=== PATIENT | male | born 1950 | race Caucasian/White ===

== ENCOUNTER 2017-08-20 13:55 | Inpatient (IN) | payer MEDICARE ==
[2017-08-20] MEDS ORDERED: LORazepam 1 MG TAB PO (14:21)
[2017-08-20] MEDS ORDERED: AMANTADINE 100 MG CAP PO (14:30)
[2017-08-20] MEDS ORDERED: traZODone 50 MG TAB PO (14:30)
[2017-08-20] MEDS ORDERED: PARoxetine 12.5 MG **CR** TAB PO (14:45)
[2017-08-20 14:56] LABS: HEMATOCRIT 35.7 % (42.0-52.0); HEMOGLOBIN 12.1 g/dl (13.5-17.5); MEAN CORPUSCULAR HEMOGLOBIN 30.1 pg (27.0-33.0); MEAN CORPUSCULAR HGB CONC 33.9 g/dl (32.0-36.5); MEAN CORPUSCULAR VOLUME 88.8 fl (80.0-96.0); PLATELET COUNT, AUTOMATED 272 10^3/uL (150-450); RED BLOOD COUNT 4.02 10^6/uL (4.30-6.10); RED CELL DISTRIBUTION WIDTH 12.4 % (11.5-14.5); WHITE BLOOD COUNT 8.6 10^3/uL (4.0-10.0)
[2017-08-20] MEDS: HALOPERIDOL 5 MG/ML VIAL (J1630) IM (15:02)
[2017-08-20] MEDS: LORazepam 2 MG/ML VIAL (J2060) IM (15:12)
[2017-08-20] MEDS: diphenhydrAMINE INJ 50MG/ML VIAL (J1200) IM (15:12)
[2017-08-20 15:29] LABS: ACETAMINOPHEN LEVEL < 2.0 UG/ML (10.0-30.0); ALBUMIN 3.2 GM/DL (3.2-5.2); ALBUMIN/GLOBULIN RATIO 1.07 (1.00-1.93); ALKALINE PHOSPHATASE 70 U/L (45-117); ALT/SGPT 35 U/L (12-78); ANION GAP 8 MEQ/L (8-16); AST/SGOT 35 U/L (7-37); BILIRUBIN,DIRECT 0.2 MG/DL (0.0-0.2); BILIRUBIN,TOTAL 0.3 MG/DL (0.2-1.0); BLOOD UREA NITROGEN 56 MG/DL (7-18); CALCIUM LEVEL 8.3 MG/DL (8.8-10.2); CARBON DIOXIDE LEVEL 29 MEQ/L (21-32); CHLORIDE LEVEL 103 MEQ/L (98-107); CREATININE FOR GFR 2.77 MG/DL (0.70-1.30); GLOMERULAR FILTRATION RATE 24.4 (>49); GLUCOSE, FASTING 154 MG/DL (70-100); POTASSIUM SERUM 4.2 MEQ/L (3.5-5.1); SALICYLATE LEVEL < 1.7 MG/DL (5.0-30.0); SODIUM LEVEL 140 MEQ/L (136-145); TOTAL PROTEIN 6.2 GM/DL (6.4-8.2)
[2017-08-20 15:36] LABS: ETHYL ALCOHOL (ETHANOL) < 0.003 % (0.000-0.010)
[2017-08-20] MEDS ORDERED: diphenhydrAMINE 25 MG CAP PO (20:15)
[2017-08-20] MEDS ORDERED: LORazepam 2 MG/ML VIAL (J2060) IV (20:15)
[2017-08-20] MEDS ORDERED: CYCLOBENZAPRINE 10 MG TAB PO (20:15)
[2017-08-20] MEDS: HEPARIN SOD (PORCINE) 5000 UNITS/ML VIAL SC (21:00)
[2017-08-20 21:25] LABS: ESTIMATED AVERAGE GLUCOSE 126 MG/DL (60-110)
[2017-08-20] MEDS: NS 500 ML IV (22:32)
[2017-08-20] MEDS: traZODone 50 MG TAB PO (22:40)
[2017-08-20] MEDS: OLANZapine 5 MG TAB PO ×2 (22:40)
[2017-08-20] MEDS: SENOKOT S TAB PO (22:40)
[2017-08-20 22:56] LABS: CK-MB VALUE MASS 18.8 NG/ML (<3.6); CPK CREATINE PHOSPHOKINASE 806 U/L (39-308); MB/CK RELATIVE INDEX 2.33 (< OR =4); TROPONIN I 0.03 NG/ML (< 0.10)
[2017-08-21 03:22] LABS: CK-MB VALUE MASS 16.8 NG/ML (<3.6); CPK CREATINE PHOSPHOKINASE 716 U/L (39-308); MB/CK RELATIVE INDEX 2.34 (< OR =4); TROPONIN I 0.03 NG/ML (< 0.10)
[2017-08-21 05:39] LABS: KETONE, URINE AUTO RFX NEGATIVE (NEGATIVE); LEUKOCYTE ESTERASE UR AUTO RFX NEGATIVE (NEGATIVE); MUCUS, URINE RFX SMALL (NEGATIVE); NITRITE, URINE AUTO RFX NEGATIVE (NEGATIVE); RBC, URINE AUTO RFX 5 /HPF (0-3); SPECIFIC GRAVITY UR AUTO RFX 1.018 (1.002-1.035); SQUAM EPITHELIAL CELL UR AURFX 0 /HPF (0-6); WBC, URINE AUTO RFX 2 /HPF (0-3)
[2017-08-21 05:43] LABS: HEMATOCRIT 38.9 % (42.0-52.0); HEMOGLOBIN 12.6 g/dl (13.5-17.5); MEAN CORPUSCULAR HEMOGLOBIN 29.4 pg (27.0-33.0); MEAN CORPUSCULAR HGB CONC 32.4 g/dl (32.0-36.5); MEAN CORPUSCULAR VOLUME 90.9 fl (80.0-96.0); OSMOLALITY URINE 543 MOSM/KG (500-800); PLATELET COUNT, AUTOMATED 244 10^3/uL (150-450); RED BLOOD COUNT 4.28 10^6/uL (4.30-6.10); RED CELL DISTRIBUTION WIDTH 12.7 % (11.5-14.5); WHITE BLOOD COUNT 7.6 10^3/uL (4.0-10.0)
[2017-08-21 05:49] LABS: CHLORIDE,RANDOM URINE 36 MEQ/L; POTASSIUM RANDOM URINE 48.4 MEQ/L; SODIUM,RANDOM URINE 32 MEQ/L
[2017-08-21 05:53] LABS: TOTAL PROTEIN,RANDOM URINE 665.6 MG/DL (0.0-12.0)
[2017-08-21 06:03] LABS: ANION GAP 8 MEQ/L (8-16); BLOOD UREA NITROGEN 48 MG/DL (7-18); CALCIUM LEVEL 8.4 MG/DL (8.8-10.2); CARBON DIOXIDE LEVEL 27 MEQ/L (21-32); CHLORIDE LEVEL 103 MEQ/L (98-107); GLOMERULAR FILTRATION RATE 26.3 (>49); GLUCOSE, FASTING 106 MG/DL (70-100); MAGNESIUM LEVEL 2.2 MG/DL (1.8-2.4); PHOSPHORUS LEVEL 3.1 MG/DL (2.5-4.9); POTASSIUM SERUM 3.6 MEQ/L (3.5-5.1); SODIUM LEVEL 138 MEQ/L (136-145)
[2017-08-21] MEDS: SENOKOT S TAB PO ×2 (08:15→19:55)
[2017-08-21] MEDS: PARoxetine 12.5 MG **CR** TAB PO (08:15)
[2017-08-21] MEDS: OLANZapine 5 MG TAB PO ×2 (08:15→19:55)
[2017-08-21] MEDS: ASPIRIN 81 MG ENTERIC TAB PO (08:15)
[2017-08-21] MEDS: ATORVASTATIN 20 MG TAB PO (08:15)
[2017-08-21] MEDS: HEPARIN SOD (PORCINE) 5000 UNITS/ML VIAL SC ×2 (08:15→19:55)
[2017-08-21] MEDS ORDERED: SLF 3 ML SYR IV (09:45)
[2017-08-21 11:33] LABS: BEDSIDE GLUCOSE 251 MG/DL (80-115)
[2017-08-21] MEDS: SLF 3 ML SYR IV ×2 (11:58→21:20)
[2017-08-21 16:54] LABS: BEDSIDE GLUCOSE 99 MG/DL (80-115)
[2017-08-21] MEDS: traZODone 50 MG TAB PO (19:55)
[2017-08-22] MEDS: SLF 3 ML SYR IV ×3 (05:23→21:37)
[2017-08-22 05:55] LABS: HEMATOCRIT 35.8 % (42.0-52.0); HEMOGLOBIN 11.7 g/dl (13.5-17.5); MEAN CORPUSCULAR HEMOGLOBIN 29.7 pg (27.0-33.0); MEAN CORPUSCULAR HGB CONC 32.7 g/dl (32.0-36.5); MEAN CORPUSCULAR VOLUME 90.9 fl (80.0-96.0); PLATELET COUNT, AUTOMATED 216 10^3/uL (150-450); RED BLOOD COUNT 3.94 10^6/uL (4.30-6.10); RED CELL DISTRIBUTION WIDTH 12.6 % (11.5-14.5); WHITE BLOOD COUNT 5.9 10^3/uL (4.0-10.0)
[2017-08-22 06:11] LABS: ALBUMIN 2.6 GM/DL (3.2-5.2); ANION GAP 7 MEQ/L (8-16); BLOOD UREA NITROGEN 48 MG/DL (7-18); CALCIUM LEVEL 8.1 MG/DL (8.8-10.2); CARBON DIOXIDE LEVEL 29 MEQ/L (21-32); CHLORIDE LEVEL 105 MEQ/L (98-107); CREATININE FOR GFR 2.53 MG/DL (0.70-1.30); GLOMERULAR FILTRATION RATE 27.1 (>49); GLUCOSE, FASTING 82 MG/DL (70-100); MAGNESIUM LEVEL 2.2 MG/DL (1.8-2.4); PHOSPHORUS LEVEL 3.3 MG/DL (2.5-4.9); POTASSIUM SERUM 3.9 MEQ/L (3.5-5.1); SODIUM LEVEL 141 MEQ/L (136-145)
[2017-08-22] MEDS: ALPRAZolam 0.5 MG TAB PO ×2 (08:45→21:40)
[2017-08-22] MEDS: OLANZapine 5 MG TAB PO ×2 (09:00→21:37)
[2017-08-22] MEDS: SENOKOT S TAB PO ×2 (09:07→21:36)
[2017-08-22] MEDS: HEPARIN SOD (PORCINE) 5000 UNITS/ML VIAL SC ×2 (09:07→21:37)
[2017-08-22 11:53] LABS: BEDSIDE GLUCOSE 193 MG/DL (80-115)
[2017-08-22 17:08] LABS: BEDSIDE GLUCOSE 94 MG/DL (80-115)
[2017-08-22] MEDS: PARoxetine 12.5 MG **CR** TAB PO (21:36)
[2017-08-22] MEDS: ATORVASTATIN 20 MG TAB PO (21:36)
[2017-08-22] MEDS: traZODone 50 MG TAB PO (21:37)
[2017-08-22] MEDS: ASPIRIN 81 MG ENTERIC TAB PO (21:37)
[2017-08-23] MEDS: SLF 3 ML SYR IV ×3 (06:00→21:13)
[2017-08-23 06:07] LABS: HEMOGLOBIN 11.7 g/dl (13.5-17.5); MEAN CORPUSCULAR HEMOGLOBIN 30.4 pg (27.0-33.0); MEAN CORPUSCULAR HGB CONC 33.4 g/dl (32.0-36.5); MEAN CORPUSCULAR VOLUME 90.9 fl (80.0-96.0); PLATELET COUNT, AUTOMATED 227 10^3/uL (150-450); RED BLOOD COUNT 3.85 10^6/uL (4.30-6.10); RED CELL DISTRIBUTION WIDTH 12.7 % (11.5-14.5)
[2017-08-23 06:29] LABS: ALBUMIN 2.5 GM/DL (3.2-5.2); ANION GAP 4 MEQ/L (8-16); BLOOD UREA NITROGEN 43 MG/DL (7-18); CARBON DIOXIDE LEVEL 32 MEQ/L (21-32); CHLORIDE LEVEL 106 MEQ/L (98-107); CREATININE FOR GFR 2.23 MG/DL (0.70-1.30); GLOMERULAR FILTRATION RATE 31.4 (>49); GLUCOSE, FASTING 78 MG/DL (70-100); MAGNESIUM LEVEL 2.2 MG/DL (1.8-2.4); PHOSPHORUS LEVEL 3.6 MG/DL (2.5-4.9); POTASSIUM SERUM 4.1 MEQ/L (3.5-5.1); SODIUM LEVEL 142 MEQ/L (136-145)
[2017-08-23 07:27] LABS: BEDSIDE GLUCOSE 83 MG/DL (80-115)
[2017-08-23] MEDS: MIRALAX *UNIT DOSE* 17GM PACKET PO (09:00)
[2017-08-23] MEDS: amLODIPine 5 MG TAB PO (09:31)
[2017-08-23] MEDS: OLANZapine 5 MG TAB PO ×2 (09:31→21:12)
[2017-08-23] MEDS: SENOKOT S TAB PO ×2 (09:31→21:12)
[2017-08-23] MEDS: HEPARIN SOD (PORCINE) 5000 UNITS/ML VIAL SC ×2 (09:31→21:11)
[2017-08-23 11:37] LABS: BEDSIDE GLUCOSE 177 MG/DL (80-115)
[2017-08-23] MEDS: MOM 30ML SUSPENSION UDC PO (12:09)
[2017-08-23] MEDS: FLEET ENEMA PR (12:38)
[2017-08-23 17:39] LABS: BEDSIDE GLUCOSE 162 MG/DL (80-115)
[2017-08-23] MEDS: ALPRAZolam 0.5 MG TAB PO (21:12)
[2017-08-23] MEDS: ASPIRIN 81 MG ENTERIC TAB PO (21:12)
[2017-08-23] MEDS: traZODone 50 MG TAB PO (21:12)
[2017-08-23] MEDS: ATORVASTATIN 20 MG TAB PO (21:12)
[2017-08-23] MEDS: PARoxetine 12.5 MG **CR** TAB PO (21:13)
[2017-08-24] MEDS: SLF 3 ML SYR IV (05:06)
[2017-08-24 06:50] LABS: HEMATOCRIT 38.4 % (42.0-52.0); HEMOGLOBIN 12.6 g/dl (13.5-17.5); MEAN CORPUSCULAR HEMOGLOBIN 30.1 pg (27.0-33.0); MEAN CORPUSCULAR HGB CONC 32.8 g/dl (32.0-36.5); MEAN CORPUSCULAR VOLUME 91.6 fl (80.0-96.0); PLATELET COUNT, AUTOMATED 281 10^3/uL (150-450); RED BLOOD COUNT 4.19 10^6/uL (4.30-6.10); RED CELL DISTRIBUTION WIDTH 12.6 % (11.5-14.5); WHITE BLOOD COUNT 5.3 10^3/uL (4.0-10.0)
[2017-08-24 07:11] LABS: ALBUMIN 2.9 GM/DL (3.2-5.2); ANION GAP 7 MEQ/L (8-16); BLOOD UREA NITROGEN 39 MG/DL (7-18); CALCIUM LEVEL 8.6 MG/DL (8.8-10.2); CARBON DIOXIDE LEVEL 31 MEQ/L (21-32); CHLORIDE LEVEL 103 MEQ/L (98-107); CREATININE FOR GFR 2.13 MG/DL (0.70-1.30); GLOMERULAR FILTRATION RATE 33.1 (>49); GLUCOSE, FASTING 109 MG/DL (70-100); MAGNESIUM LEVEL 2.5 MG/DL (1.8-2.4); PHOSPHORUS LEVEL 3.3 MG/DL (2.5-4.9); POTASSIUM SERUM 4.3 MEQ/L (3.5-5.1); SODIUM LEVEL 141 MEQ/L (136-145)
[2017-08-24] MEDS: OLANZapine 5 MG TAB PO (07:47)
[2017-08-24] MEDS: amLODIPine 5 MG TAB PO (07:47)
[2017-08-24] MEDS: SENOKOT S TAB PO (07:47)
[2017-08-24] MEDS: HEPARIN SOD (PORCINE) 5000 UNITS/ML VIAL SC (07:48)
[2017-08-24] MEDS: MIRALAX *UNIT DOSE* 17GM PACKET PO (07:49)
== END 2017-08-24 08:25 | disposition home or self-care (01) | DRG 884 ==
LOC: M MS5PR 08-22 12:50 → M ED 13:55 → M ED INP 20:09 → M PCU 23:52
DX: R45.1 Restlessness and agitation (principal); G10 Huntington's disease; I25.10 Atherosclerotic heart disease of native coronary artery without angina pectoris; N18.9 Chronic kidney disease, unspecified; K59.00 Constipation, unspecified; E11.22 Type 2 diabetes mellitus with diabetic chronic kidney disease; Z95.1 Presence of aortocoronary bypass graft; Z79.84 Long term (current) use of oral hypoglycemic drugs; Z79.899 Other long term (current) drug therapy; Z79.82 Long term (current) use of aspirin